=== PATIENT | female | born 1955 | race Two or more races ===

== ENCOUNTER 2019-11-14 09:06 | Inpatient (IN) | payer OTHER ==
[~2019-11-14] VITALS: Ht 154.9 cm; Wt 68.0 kg
[2019-12-16] MEDS ORDERED: SIMETHICONE125 M1 PO (07:59)
[2019-12-16] MEDS ORDERED: IBUPROFEN800 MG PO (07:59)
== END 2019-12-16 09:33 | disposition home or self-care (01) | DRG 743 ==
LOC: O/R 12-14 05:55 → SURG 12-14 07:00 → OB/GYN 12-14 12:16
PROVIDERS: ADMIT Specialist
PROC: 0UT10ZZ Resection of Left Ovary, Open Approach (ICD-10-PCS; 2019-12-14)
PROC: 0UB10ZZ Excision of Left Ovary, Open Approach (ICD-10-PCS; 2019-12-14)
PROC: 0UT60ZZ Resection of Left Fallopian Tube, Open Approach (ICD-10-PCS; principal; 2019-12-14 07:00)
DX: D27.1 Benign neoplasm of left ovary (principal)

== ENCOUNTER 2019-11-26 09:22 | Outpatient (CLI) | payer OTHER | END 2019-11-26 09:29 | disposition home or self-care (01) | LOC: LAB 09:22 | DX: D50.8 Other iron deficiency anemias (principal); E83.51 Hypocalcemia; N39.0 Urinary tract infection, site not specified; E03.8 Other specified hypothyroidism; D68.8 Other specified coagulation defects; E78.00 Pure hypercholesterolemia, unspecified; Z01.811 Encounter for preprocedural respiratory examination; Z01.810 Encounter for preprocedural cardiovascular examination ==